=== PATIENT | female | born 1955 | race Caucasian/White ===

== ENCOUNTER → 2017-02-05 | Outpatient (CLI) | payer OTHER ==
[~2017-02-05] MED LIST: BISA-16 PO; CLON0.5T3 PO; HYDR-3126 PO; HYDR-3785 PO; IBUP-1428 PO; LOVA20TA4 PO; MECL1CHW4 PO; METHPOW7 PO; MIRA100T PO; OXYC1CAP5 PO; PANT40TA PO; POLY335019 PO; SOLI10TA2 PO; TOPI100T20 PO; TRAZ100T29 PO; WLLSR150 PO; ZOLP5TAB PO
[2017-02-05 14:07] VITALS: BP 113/78; PULSE 72; TEMP 36.6; O2SAT 98
--- NOTE | 2017-02-05 16:33 | Radiation Oncology Follow-Up ---
Radiation Oncology Follow-Up Date of Visit February 05, 2017. Reason For Visit One-month follow-up in cancer survivorship care plan Radiation Completion Date 12/30/16 Diagnosis (1) Breast CA Status: Resolved Onset Date: 02/28/2016 Permanent Comment: Abnormal right breast mammogram Status post biopsy of breast mass as well as axilla 02/28/2016 revealing invasive carcinoma Estrogen receptor negative, progesterone receptor indeterminate, HER-2/shauna negative Status post MRI guided biopsy of the left breast which was benign 04/03/2016 Status post neoadjuvant systemic chemotherapy Adriamycin and Cytoxan for 4 cycles then weekly Taxol 12 Status post lumpectomy and sentinel lymph node biopsy 10/09/2016 Stage ypT1c ypN2a M0 G3 Status post completion of radiation therapy 12/30/2016. She received 6240 cGy Last Edited By: Sania Wing on January 13, 2017 10:35 History of Present Illness Ms. Horner is a 61-year-old female without a family history of breast cancer. Patient underwent bilateral screening [facility]14[facility]. In the right axillary region and axillary lymphadenopathy was appreciated with a 2.9 x 2.8 cm lymph node. There was an equivocal asymmetry at the 12 o'clock position middle depth and equivocal mild right retroareolar asymmetry with nipple retraction. Right whole breast, synthesis CC and MLO oh injections with Spot views and targeted ultrasound were recommended for further clarification and evaluation. These procedures were performed on 02/22/2016. In the retroareolar region of the right breast there was suggestion of a 1.0 cm nodule which was not present on prior mammograms. The nipple did appear to be retracted. On sonography the right breast demonstrated a hypoechoic somewhat lobulated elongated structure measuring up to 0.3 cm in length. An ultrasound core biopsy and clip placement of the axillary and retroareolar region were performed on 03/05/2016. The preliminary ultrasound showed a 2.8 x 1.3 x 0.9 cm irregularly marginated vascularized hypoechoic mass. Targeted ultrasound of the right axilla also revealed a hypoechoic replaced enlarged lymph node corresponding to the lymphadenopathy is seen on the recent mammogram measuring 2.8 x 1.4 x 2.5 cm. The biopsy of the right breast retroareolar mass under ultrasound guidance confirmed an invasive carcinoma Toivola grade 2 of 3 measuring 1.1 cm in greatest dimension with focal necrosis. Angiolymphatic invasion was morphologically absent. Biopsy of the right axilla under ultrasound guidance also revealed an invasive carcinoma Poonam grade 2 of 3 adjacent lymphoid tissue measuring 0.8 cm in greatest dimension. Estrogen receptors were negative. Progesterone receptors were indeterminant. HER-2/shauna oncogene expression was equivocal. The tumor by FISH analysis was not amplified and therefore negative. Accession #: [id number]. The patient was seen by Dr. Khloe Mandujano for evaluation of neoadjuvant systemic chemotherapy. She ordered a staging PET/CT scan which was performed on 2015. This identified a right breast mass with an SUV max of 9.7. A large intensively avid right axillary node was also noted with an SUV max of 25.3. A mildly metabolically active subcarinal lymph node measuring 4.9 SUV max was appreciated. There was mild increased FDG activity projecting in the anterior upper mediastinum near the right sternoclavicular joint which could be slight this registration. The right axillary lymph node measured 2.3 x 3.0 cm. There was metabolic activity of the gastric cardia likely physiologic. No evidence of dissemination was appreciated. Her clinical staging was therefore T2 N1 ER negative, DC indeterminant and HER-2/shauna negative. Stage IIB. Dr. Brown ordered bilateral breast MRIs which were performed on 03/27/2016. In the right breast there was an irregular enhancing bilobed mass in the right sub-areolar breast measuring 1.4 x 3.0 x 1.6 cm area this involved the overlying areola with associated nipple retraction also noted. Susceptibility artifact from the biopsy marker clip was noted at the lateral aspect of this mass. These findings were consistent with the biopsy-proven malignancy. Remainder of the right breast demonstrated no suspicious enhancing masses or areas of abnormal non-mass enhancement. In the left breast a few foci measuring less than 0.5 cm are seen scattered throughout the left breast which appear similar to those changes in the right breast and felt to represent normal background. However there was a focal area of clumped non-mass enhancement measuring 0.6 cm in the left breast at the 9 o'clock position middle depth position. This was indeterminant and an MRI guided biopsy was recommended for further evaluation. An an abnormally enlarged right axillary lymph node was also noted measuring 2.9 x 1.7 cm with susceptibility artifact from biopsy marker seen within the lymph node. These are consistent with knowing ilda metastasis. No other abnormal right axillary lymph nodes are seen. There is no evidence of left axillary adenopathy. No other abnormalities noted on this MRI. On 04/03/2016 the patient underwent an MRI guided biopsy of the left breast abnormality. This revealed adenosis and intraductal papilloma with usual ductal hyperplasia. There was no evidence of DCIS or invasive carcinoma appreciated. Case: [id number]. The patient agreed to proceed with systemic chemotherapy. This consisted of Adriamycin and Cytoxan 4 followed by weekly Taxol. During the treatment the patient developed left breast pain and tenderness. She underwent a unilateral left digital diagnostic mammogram on 05/27/2016 with targeted ultrasound. The previous MRI guided left breast biopsy was noted with no other changes appreciated. Overall the patient did tolerate her systemic therapy fairly well. She does have some persistent numbness which is improving. Patient underwent repeat bilateral breast MRIs on 08/22/2016. This showed the irregular enhancing mass were previously 2 adjacent masses were identified in the right subareolar breast consistent with the biopsy-proven malignancy. This lesion had significantly decreased in size compared to the prior MRI in March 2016. This was consistent with a partial response to chemotherapy. There were 2 residual small areas of enhancement in the right subareolar breast. One measured 0.8 x 0.5 cm and the second measured 0.3 cm. The total extent of the area measured 2.3 x 0.8 cm compared to 3.0 x 1.4 cm on previous examination. The clip artifact was again noted. In addition the abnormal right axillary lymph node consistent with the biopsy-proven ilda metastasis had also decreased in size. Its current measurement was 1.8 x 1.1 cm compared to 2.9 x 1.7 cm. The remainder of the right breast was unremarkable. The left breast showed the clip artifact from prior biopsy but no other abnormalities. No left axillary adenopathy was appreciated. The extramammary tissues were unremarkable. Following the completion of the systemic chemotherapy the patient underwent a restaging PET/CT scan on 09/25/2016. This again showed a hypermetabolic right axillary lymph node measuring 1.8 x 0.9 cm markedly decreased in size from the previous measurement of 3.0 x 2.3 cm. The maximum SUV was 2.6 compared to a maximum SUV of 25.33 neoadjuvant chemotherapy. The previously hypermetabolic right breast mass was markedly decreased in FDG uptake consistent with residual tissue in this region. No areas of dissemination was appreciated. The patient returned to see Dr. Brown who proceeded to perform a right breast lumpectomy and sentinel node biopsy on 10/09/2016. The lumpectomy specimen identified residual invasive carcinoma Poonam grade 3 of 3 measuring 1.2 cm in greatest dimension. Invasive carcinoma directly invading into the dermis without skin ulceration. There was evidence of angiolymphatic invasion and perineural invasion. The margins of resection were negative for residual carcinoma. 9 sentinel nodes were initially identified and excised. 5 of them were positive for metastatic carcinoma with the largest measuring 0.5 cm without evidence of extracapsular extension. An additional 3 sentinel lymph nodes were excised and these were negative for metastatic disease. Therefore total of 5 out of 12 nodes were positive. The final pathologic stage was ypT1c ypN2a ER negative, DC indeterminant and HER-2/shauna negative by FISH. Accession # : [id number]. The patient is healing from her surgery and we were asked to see her to review with you the role of adjuvant radiation. She was treated with conventional radiation therapy. Her treatments were completed 12/30/2016. She received 6240 cGy. Treatment to the right breast, supraclavicular area, and axilla. Interim History She continues to have some mild soreness in the lateral aspect of the breast. She rated this at a level V. Occasional burning sensation. She said had no changes to the overlying skin. She has noted no redness and no masses. She takes Advil and this does help to relieve the discomfort she has seen Dr. Brown in follow-up and mammography is scheduled for April. Her energy levels are steadily improving. She did note increased difficulty with her depression and bipolar disease following treatment. She is following closely with her psychologist and psychiatrist. She was seen in medical oncology and there are plans for her to continue with physical therapy to help with improved mobility for the right shoulder. Allergies Coded Allergies: Morphine (Verified Allergy, Mild, "GO CRAZY", 07/10/16) Wasp (Unverified Allergy, Unknown, PASS OUT, THROAT SWELLING, 07/10/16) Home Medications Scheduled Bupropion HCl (Bupropion HCl Sr), 150 MG PO BID Clonazepam (Klonopin), 0.5 MG PO QPM Hydroxyzine Hcl (Atarax), 50 MG PO HS Lovastatin (Mevacor), 20 MG PO HS Pantoprazole (Protonix), 40 MG PO DAILY Solifenacin (Vesicare), 10 MG PO QAM Topiramate (Topamax), 100 MG PO BIDM Trazodone Hcl (Trazodone), 150 MG PO QPM Scheduled PRN Bisacodyl (Dulcolax), 1 TAB PO DAILY PRN for Constipation Meclizine Hcl (Meclizine Hcl), 25 MG PO DAILY PRN for Dizziness or Vertigo Zolpidem Tartrate (Ambien), 1 TAB PO HS PRN for Insomnia Review of Systems Gastrointestinal: Symptoms: Nausea, Constipation GI Comments: Waves of nausea;no emesis;Has antiemetics to use PRN; Oral: Other Oral Symptoms: Rectal spotting she relates to known hemorrhoids; Respiratory: Symptoms: Dry Cough Other Respiratory: That she's now been prescribed inhalers for w/relief; Urinary: Comments: Takes medication for urinary urgency; Skin: Symptoms: No Problems Breast: Right Upper Arm Measurement: 33.0 Right Mid Arm Measurement: 25.0 Right Wrist Measurement: 16.3 Left Upper Arm Measurement: 31.0 Left Mid Arm Measurement: 25.8 Left Wrist Measurement: 17.0 Arm Dominence: Left Additional Notes: She completed a distress management report and answered "no" to all questions other than she does have depression, nervousness and worry about her diagnosis. She does see a psychiatrist and psychologist on a regular basis. Physical Exam Vital Signs Date Time Temp Pulse Resp B/P Pulse Ox O2 Delivery O2 Flow Rate FiO2 02/05/17 14:07 36.6 72 16 113/78 98 Fatigue: None General Appearance: no apparent distress Eyes: normal inspection, EOMI ENT: normal ENT inspection, hearing grossly normal Neck: no adenopathy, thyroid normal Respiratory/Chest: lungs clear, no respiratory distress, no accessory muscle use Breast: Examination of the right breast shows the nipple to be absent. There is mild edema in the lower quadrants of the breast. There are no masses. Slight tenderness laterally. There is no axillary adenopathy. She has no skin retractions. There is resolving hyperpigmentation. Oozing the Medora score cosmesis she has a good outcome. The left breast showed no masses or tenderness and no axillary adenopathy. Cardiovascular: regular rate, rhythm, no gallop, no murmur Abdomen: non tender, soft, no organomegaly Extremities: no pedal edema Neurologic/Psychiatric: no motor/sensory deficits, alert, normal mood/affect Laboratory Studies Test 11/13/16 15:15 White Blood Count 5.62 K/uL (4.8-10.8) Red Blood Count 4.33 M/uL (4.2-5.4) Hemoglobin 12.8 g/dL (12.0-16.0) Hematocrit 37.1 % (37-47) Mean Corpuscular Volume 85.7 fL (80-100) Mean Corpuscular Hemoglobin 29.6 pg (25-34) Mean Corpuscular Hemoglobin Concent 34.5 g/dl (32-36) Platelet Count 234 K/uL (130-400) Mean Platelet Volume 8.9 fL (7.4-10.4) Neutrophils (%) (Auto) 60.9 % Lymphocytes (%) (Auto) 22.2 % Monocytes (%) (Auto) 14.2 % Eosinophils (%) (Auto) 2.0 % Basophils (%) (Auto) 0.5 % Neutrophils # (Auto) 3.42 K/uL (1.4-6.5) Lymphocytes # (Auto) 1.25 K/uL (1.2-3.4) Monocytes # (Auto) 0.80 K/uL (0.11-0.59) Eosinophils # (Auto) 0.11 K/uL (0-0.5) Basophils # (Auto) 0.03 K/uL (0-0.2) RDW Standard Deviation 41.2 fL (36.4-46.3) RDW Coefficient of Variation 13.0 % (11.5-14.5) Immature Granulocyte % (Auto) 0.2 % Immature Granulocyte # (Auto) 0.01 K/uL (0.00-0.02) Ovalocytes 1+ Thyroid Stimulating Hormone (TSH) 1.370 uIu/ml (0.300-4.500) Additional Studies She had a CT of the chest 01/06/2017 richard once. Showed a new fluid collection in the retroareolar right breast should represent a postoperative seroma area and abscess or tumor recurrence is not ruled out. Attention to this finding on follow-up studies is suggested. Interval decrease in size of hypermetabolic right axillary lymph node. Right major fissure nodule not seen previously. Anterior right upper lobe 5 mm nodule more conspicuous on the current study. Attention to these findings on the follow-up studies is recommended. New 3 mm low attention lesion in the dome of the liver may be conspicuous on the current study due to thinner 3 mm slices currently there was an addendum that the lesions are felt to be small cysts. Assessment & Plan Plan: Continue regular follow-up with medical oncology. Continue with scheduled mammography. She is scheduled for a mammogram in April. You follow- up with her breast surgeon. She continues follow-up with her psychiatrist and psychologist. She is going to physical therapy to help with her shoulder. Today we completed a cancer survivorship care plan. A copy of the document was given to patient. Recheck scanning per medical oncology. We asked her to return to our office in 6 months. Total Time In Follow-Up I spent 30 minutes speaking to the patient about performing examination. I spent 20 minutes reviewing information, preparing the survivorship document, and completing this note. Copy To Emmy Brown MD; Khloe Mandujano MD; Carrol Osorio M.D. Problem Qualifiers (1) Breast CA: Breast location: central portion of breast Estrogen receptor status: negative Patient sex: female Laterality: right Qualified Codes: C50.111 - Malignant neoplasm of central portion of right female breast; Z17.1 - Estrogen receptor negative status [ER-]
== END | disposition home or self-care (01) ==
LOC: C.ONC 14:01
PROVIDERS: ATTEND Physician Assistant Medical
DX: Z08 Encounter for follow-up examination after completed treatment for malignant neoplasm (principal); Z92.3 Personal history of irradiation; Z85.3 Personal history of malignant neoplasm of breast

== ENCOUNTER 2017-04-07 10:16 | Emergency (ER) | payer OTHER ==
[~2017-04-07] VITALS: Ht 167.6 cm; Wt 91.9 kg
[~2017-04-07 10:16] MED LIST changes: -HYDR-3126 PO; -IBUP-1428 PO; -METHPOW7 PO; -MIRA100T PO; -OXYC1CAP5 PO; -POLY335019 PO
[2017-04-07 10:22] VITALS: TEMP 36.5; Ht 167.6 cm; Wt 91.9 kg
[2017-04-07] MEDS ORDERED: HYDR-3126 PO (10:35)
[2017-04-07] MEDS ORDERED: ACETAMINOPHEN 500 MG TAB PO STA (11:04)
[2017-04-07] MEDS ORDERED: OXYCODONE HCL IR 5 MG TAB (IMMEDIATE RELEASE) PO STA (11:04)
[2017-04-07] MEDS ORDERED: SODIUM CHLORIDE 0.9% 1000ML 1,000 ML IV STA (11:14)
[2017-04-07] MEDS ORDERED: OPTIRAY 320 IV PRN (11:30)
[2017-04-07 12:10] LABS: BASO % 0.7 %; BASO ABS # 0.03 K/uL (0-0.2); COMPLETE YES; HEMATOCRIT 35.4 % (37-47); IG% 0.2 %; LYMPH % 21.9 %; LYMPH ABS # 0.99 K/uL (1.2-3.4); MEAN CELL VOLUME 89.2 fL (80-100); MEAN CORPUSCULAR HEMOGLOBIN 30.5 pg (25-34); MEAN CORPUSCULAR HGB CONC 34.2 g/dl (32-36); MONO % 14.6 %; NEUT % 60.6 %; PLATELET COUNT 181 K/uL (130-400); RED BLOOD COUNT 3.97 M/uL (4.2-5.4); WHITE BLOOD COUNT 4.52 K/uL (4.8-10.8)
[2017-04-07 12:28] LABS: BUN/CREATININE RATIO 10.1 (10-20); CALCIUM 8.5 mg/dl (8.5-10.1); CREATININE 0.92 mg/dl (0.60-1.20); POTASSIUM 3.6 mmol/L (3.5-5.1)
--- NOTE | 2017-04-07 13:11 | DIAGNOSTIC IMAGING REPORT ---
ADDENDUM Addendum: Comparison is made to an outside CT dated 01/06/2017. The postoperative seroma of the right breast has resolved. No significant adenopathy on the current study. Micronodularity previously described is nonprogressive IMPRESSION: Study is stable to slightly improved compared to the prior exam. Stable micronodularity. Improved postoperative changes right breast. Electronically signed by: Pranav Mayer M.D. 04/15/2017 12:41 PM Dictated Date/Time: 04/15/2017 12:40 PM ORIGINAL REPORT (CHEST) THORAX WITH CT DOSE: 532.53 mGy.cm HISTORY: Trauma. Pain. fall, left cwt pain, r/o rib fx/pulm contusion TECHNIQUE: Multiaxial CT images of the chest were performed following the intravenous administration of contrast. A dose lowering technique was utilized adhering to the principles of ALARA. COMPARISON: None. FINDINGS: Minimal dependent basilar atelectasis. Lungs otherwise are clear. No evidence pneumothorax. Pulmonary vasculature appears unremarkable with no major filling defect within limitations of this exam. Thoracic aorta is unremarkable. No significant mediastinal or hilar adenopathy. Moderate degenerative change of the osseous structures. No evidence for compression deformity. 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 No evidence for acute bony pathology. Slight nonspecific bone density in homogeneity which potentially represents osteoporotic change. IMPRESSION: No acute process. Lungs are clear. No acute bony pathology. The above report was generated using voice recognition software. It may contain grammatical, syntax or spelling errors. Electronically signed by: Pranav Mayer M.D. 04/07/2017 1:09 PM Dictated Date/Time: 04/07/2017 1:05 PM
--- NOTE | 2017-04-07 13:35 | EMERGENCY ROOM VISIT NOTE ---
History Report prepared by Lacie: Etelvina Dumont Under the Supervision of: Dr. Raz Ladd M.D. First contact with patient: 10:56 Chief Complaint: RIB PAIN Stated Complaint: SHARP PAIN-LEFT SIDE UNDER LEFT BREAST Nursing Triage Summary: pt states friday carrying stff up steps went to step up fell onto edge of step rolled back and hit head on rock scraped up right side. pt reports now when breathing heavy gets pain under left breast History of Present Illness The patient is a 62 year old female who presents to the Emergency Room with complaints of persistent left rib pain starting 2 days ago. She called her doctor this morning who told her to present to the ED. The patient was going up cement stairs up to her home. She was carrying too many items and lost her balance. She fell into the step, rolled over and hit her head on a rock. Her had to help her up. She was able to walk afterwards without limping. Her pain worsens with breathing and movement. She took 2 Advil this morning to no significant relief. She has an abrasion on her right leg. She denies any LOC , head pain, abdominal pain, or neck pain. She is not on any blood thinners. She is currently in remission from stage 3 breast cancer in her right breast. She is scheduled for a mammogram tomorrow. Source of History: patient, spouse/significant other Onset: 2 days ago Position: other (left rib) Quality: other (injury, pain) Timing: other (persistent) Modifying Factors (Worsening): breathing, movement Associated Symptoms: No LOC, No headache, No neck pain, No abdominal pain Note: Pt reports right leg abrasion. Review of Systems See HPI for pertinent positives and negatives. A total of ten systems were reviewed and were otherwise negative. Past Medical & Surgical Medical Problems: (1) Breast CA Family History Diabetes mellitus FHx: cancer FHx: heart disease Hypertension Social History Smoking Status: Never Smoker Alcohol Use: occasionally Drug Use: none Marital Status: Occupation Status: employed Current/Historical Medications Scheduled Bupropion HCl (Bupropion HCl Sr), 150 MG PO BID Clonazepam (Klonopin), 0.5 MG PO QPM Hydroxyzine Hcl (Atarax), 50 MG PO HS Ibuprofen (Motrin), 800 MG PO Q8H Lovastatin (Mevacor), 20 MG PO HS Pantoprazole (Protonix), 40 MG PO DAILY Solifenacin (Vesicare), 10 MG PO QAM Topiramate (Topamax), 100 MG PO BIDM Trazodone Hcl (Trazodone), 150 MG PO QPM Scheduled PRN Bisacodyl (Dulcolax), 5 MG PO DAILY PRN for Constipation Meclizine Hcl (Meclizine Hcl), 25 MG PO DAILY PRN for Dizziness or Vertigo Oxycodone Hcl (Oxycodone Hcl), 1 CAP PO TID PRN for Pain Zolpidem Tartrate (Ambien), 5 MG PO HS PRN for Insomnia Allergies Coded Allergies: Morphine (Verified Allergy, Mild, "GO CRAZY", 04/07/17) Wasp (Unverified Allergy, Unknown, PASS OUT, THROAT SWELLING, 04/07/17) Physical Exam Vital Signs Date Time Temp Pulse Resp B/P (MAP) Pulse Ox O2 Delivery O2 Flow Rate FiO2 04/07/17 14:40 83 18 107/69 98 Room Air 04/07/17 13:46 64 16 107/69 94 Room Air 04/07/17 13:26 62 04/07/17 12:51 65 18 122/60 94 Room Air 04/07/17 11:52 64 18 110/69 100 Room Air 04/07/17 10:57 69 04/07/17 10:22 36.5 75 18 107/72 100 Room Air Physical Exam GENERAL: Awake, alert, well-appearing, in no distress HENT: Normocephalic, atraumatic. Oropharynx unremarkable. EYES: Normal conjunctiva. Sclera non-icteric. NECK: Supple. No nuchal rigidity. FROM. No JVD. RESPIRATORY: Clear to auscultation. CARDIAC: Regular rate, normal rhythm. Extremities warm and well perfused. Pulses equal. ABDOMEN: Soft, non-distended. No tenderness to palpation. No rebound or guarding. No masses. RECTAL: Deferred. MUSCULOSKELETAL: Mild to moderate tenderness to the left posterior lateral chest wall ribs 4, 5, 6, 7. The back is symmetrical on inspection without obvious abnormality. There is no CVA tenderness to palpation. No joint edema. LOWER EXTREMITIES: Calves are equal size bilaterally and non-tender. No edema. No discoloration. NEURO: Normal sensorium. No sensory or motor deficits noted. SKIN: No rash or jaundice noted. Medical Decision & Procedures ER Provider Diagnostic Interpretation: Radiology results as stated below per my review and radiologist interpretation: (CHEST) THORAX WITH CT DOSE: 532.53 mGy.cm HISTORY: Trauma. Pain. fall, left cwt pain, r/o rib fx/pulm contusion TECHNIQUE: Multiaxial CT images of the chest were performed following the intravenous administration of contrast. A dose lowering technique was utilized adhering to the principles of ALARA. COMPARISON: None. FINDINGS: Minimal dependent basilar atelectasis. Lungs otherwise are clear. No evidence pneumothorax. Pulmonary vasculature appears unremarkable with no major filling defect within limitations of this exam. Thoracic aorta is unremarkable. No significant mediastinal or hilar adenopathy. Moderate degenerative change of the osseous structures. No evidence for compression deformity. 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 No evidence for acute bony pathology. Slight nonspecific bone density in homogeneity which potentially represents osteoporotic change. IMPRESSION: No acute process. Lungs are clear. No acute bony pathology. The above report was generated using voice recognition software. It may contain grammatical, syntax or spelling errors. Electronically signed by: Pranav Mayer M.D. 04/07/2017 1:09 PM Dictated Date/Time: 04/07/2017 1:05 PM Laboratory Results 04/07/17 11:40 Red Blood Count 3.97, Mean Corpuscular Volume 89.2, Mean Corpuscular Hemoglobin 30.5, Mean Corpuscular Hemoglobin Concent 34.2, Mean Platelet Volume 9.0, Neutrophils (%) (Auto) 60.6, Lymphocytes (%) (Auto) 21.9, Monocytes (%) (Auto) 14.6, Eosinophils (%) (Auto) 2.0, Basophils (%) (Auto) 0.7, Neutrophils # (Auto ) 2.74, Lymphocytes # (Auto) 0.99, Monocytes # (Auto) 0.66, Eosinophils # (Auto ) 0.09, Basophils # (Auto) 0.03 04/07/17 11:40 Test 04/07/17 11:40 White Blood Count 4.52 K/uL (4.8-10.8) Red Blood Count 3.97 M/uL (4.2-5.4) Hemoglobin 12.1 g/dL (12.0-16.0) Hematocrit 35.4 % (37-47) Mean Corpuscular Volume 89.2 fL (80-100) Mean Corpuscular Hemoglobin 30.5 pg (25-34) Mean Corpuscular Hemoglobin Concent 34.2 g/dl (32-36) Platelet Count 181 K/uL (130-400) Mean Platelet Volume 9.0 fL (7.4-10.4) Neutrophils (%) (Auto) 60.6 % Lymphocytes (%) (Auto) 21.9 % Monocytes (%) (Auto) 14.6 % Eosinophils (%) (Auto) 2.0 % Basophils (%) (Auto) 0.7 % Neutrophils # (Auto) 2.74 K/uL (1.4-6.5) Lymphocytes # (Auto) 0.99 K/uL (1.2-3.4) Monocytes # (Auto) 0.66 K/uL (0.11-0.59) Eosinophils # (Auto) 0.09 K/uL (0-0.5) Basophils # (Auto) 0.03 K/uL (0-0.2) RDW Standard Deviation 42.0 fL (36.4-46.3) RDW Coefficient of Variation 12.9 % (11.5-14.5) Immature Granulocyte % (Auto) 0.2 % Immature Granulocyte # (Auto) 0.01 K/uL (0.00-0.02) Anion Gap 8.0 mmol/L (3-11) Est Creatinine Clear Calc Drug Dose 72.4 ml/min Estimated GFR () 77.3 Estimated GFR (Non- 66.7 BUN/Creatinine Ratio 10.1 (10-20) Calcium Level 8.5 mg/dl (8.5-10.1) Laboratory results reviewed by me Medications Administered Medications (Trade) Dose Ordered Sig/Julio Route Start Time Stop Time Status Last Admin Dose Admin Oxycodone HCl (Roxicodone Immediate Rel Tab) 5 mg NOW STAT PO 04/07/17 11:04 04/07/17 11:14 DC 04/07/17 11:52 5 MG Acetaminophen (Tylenol Tab) 1,000 mg NOW STAT PO 04/07/17 11:04 04/07/17 11:14 DC 04/07/17 11:51 1,000 MG Sodium Chloride 1,000 ml @ 999 mls/hr Q1H1M STAT IV 04/07/17 11:14 04/07/17 12:14 DC 04/07/17 11:26 999 MLS/HR Heparin Sodium (Porcine) (Heparin 10 Unit/ ml 5 ml Flush) 5 ml STK-MED ONCE .ROUTE 04/07/17 13:48 04/07/17 13:49 DC 04/07/17 13:48 5 ML ECG Indication: chest pain Rate (beats per minute): 66 Rhythm: normal sinus Findings: no acute ischemic change, other (normal axis) Comparison ECG Date: no prior available ED Course 1102: The patient was evaluated in room B5. A complete history and physical exam was performed. 1104: Acetaminophen 1000 mg PO, Oxycodone HCl 5 mg PO. 1114: NSS 1000 ml @ 999 mls/hr IV. 1340: I reevaluated the patient. I discussed results and discharge instructions : she verbalized understanding and agreement. The patient is ready for discharge. 1348: Heparin Sodium (Porcine) 5 ml IV. Medical Decision I reviewed the patient's past medical history, medications, and the nursing notes as described above. Differential diagnosis: rib fractures, pulmonary contusion, soft tissues injury , contusion, musculoskeletal strain. Patient is a 62 y/o woman who presents to the ED with persisted left cw pain and sob after having mechanical fall 2 days CAN CRIMPER per HPI. On arrival the patient is in NAD, AFVSS. >95% on RA. Reports SOB and difficulty with deep breaths. On exam has ttp left lateral CW concerning for possible rib fx. Considering the patient's age and morbidity associated with multiple rib fx, CT scan ordered. CT negative for fx or PTX. Sx most likley msk strain, soft tissue contusion. Patient also reported HS with fall as well but denies LOC, CHEEK, n/v, changes in vision. Head is NC/AT. Considering 2 days from fall and neuro intact, no imaging indicated at this time. Findings and plan for IS, pain control, and pcp f/u d/w patient. Patient agreeable and d/c'd per dci. Head Trauma GCS Score: 15 Medication Reconcilliation Current Medication List: was personally reviewed by me Blood Pressure Screening Patient's blood pressure: Normal blood pressure Blood pressure disposition: Did not require urgent referral Impression Primary Impression: Chest wall muscle strain Scribe Attestation The scribe's documentation has been prepared under my direction and personally reviewed by me in its entirety. I confirm that the note above accurately reflects all work, treatment, procedures, and medical decision making performed by me. Departure Information Dispostion Home / Self-Care Prescriptions Oxycodone Hcl (OXYCODONE HCL) 5 Mg Cap 1 CAP PO TID Y for Pain for 5 Days, #5 CAP Prov: Raz Ladd M.D. 04/07/17 Ibuprofen (Motrin) 800 Mg Tab 800 MG PO Q8H for 7 Days, #21 TAB Prov: Raz Ladd M.D. 04/07/17 Referrals Carrol Osorio M.D. (PCP) Patient Instructions ED Contusion Chest Wall, My [facility] Additional Instructions Please follow up with your primary care physician in the next 1-3 days. Your exam, lab results, and CT scan of your chest did not show signs of an emergent condition at this time. Take ibuprofen up to 800 mg every 8 hours as needed for pain for the next 7 days. Oxycodone for breakthrough pain as needed. Apply ice and heat at 20 minute intervals throughout the day as needed for additional pain relief. Incentive spirometer 10 times per hour every hour for the next week. Return to the emergency department for worsening symptoms as described in the accompanying instructions.
[2017-04-07] MEDS ORDERED: IBUP-1428 PO (13:53)
[2017-04-07] MEDS ORDERED: OXYC1CAP5 PO (13:53)
[2017-04-07 14:40] VITALS: BP 107/69; PULSE 83; O2SAT 98
== END 2017-04-07 14:42 | disposition home or self-care (01) ==
LOC: C.EDB 10:17
DX: S29.012A Strain of muscle and tendon of back wall of thorax, initial encounter (principal); W10.9XXA Fall (on) (from) unspecified stairs and steps, initial encounter; Z85.3 Personal history of malignant neoplasm of breast; Z83.3 Family history of diabetes mellitus; Z82.49 Family history of ischemic heart disease and other diseases of the circulatory system

== ENCOUNTER → 2017-04-10 | Outpatient (CLI) | payer OTHER ==
[~2017-04-10] MED LIST changes: +GADAVIST IV PRN; +GADOXETATE DISODIUM (NON-WT BASED PROCEDURE) IV PRN; +HYDR-3126 PO; -HYDR-3785 PO; +IBUP-1428 PO; +OXYC1CAP5 PO
--- NOTE | 2017-04-10 13:49 | DIAGNOSTIC IMAGING REPORT ---
LIVER COMBO CLINICAL HISTORY: 62 years-old Female presenting with BREAST CA,LIVER LESION. TECHNIQUE: Multisequence, multiplanar MR imaging of the abdomen was performed before and after the administration of intravenous contrast. IV contrast: 10 mL of Eovist. COMPARISON: Correlation made to CT from 05/30/2016. FINDINGS: Localizer images: Unremarkable. Lung bases: Lung bases clear. No pericardial or pleural effusion. Liver: Carissa lobe configuration. No evidence of hepatic steatosis. No suspicious liver lesion. Tiny hepatic cyst or hamartoma noted at the right dome. Conventional hepatic arterial anatomy. Superior mesenteric, portal, and hepatic veins patent. Biliary: Conventional intrahepatic biliary bifurcation. No intrahepatic or extrahepatic biliary ductal dilatation. Normal excretion of contrast on the hepatobiliary phase into the duodenum. Normal gallbladder. Pancreas: Moderate parenchymal atrophy. No pancreatic ductal dilatation. Spleen: Normal. Adrenal glands: Normal. Kidneys and ureters: Normal. No hydronephrosis. Gastrointestinal tract: Normal. No bowel obstruction. Peritoneal cavity: No free fluid or intraperitoneal gas. Vasculature: Aorta and IVC patent and normal in caliber. Lymph nodes: No enlarged lymph nodes in the abdomen or pelvis. Abdominal wall: Normal. Musculoskeletal: T2 hyperintense, nonfat-containing enhancing mass in one of the lower thoracic vertebral bodies, indeterminate. However, the appearance on CT from May 2016 was indicative of a benign hemangioma. IMPRESSION: 1. No evidence of metastatic disease in the abdomen. No suspicious liver lesion. Electronically signed by: Mckay Samaniego M.D. 04/10/2017 1:48 PM Dictated Date/Time: 04/10/2017 1:37 PM
== END | disposition home or self-care (01) ==
LOC: C.MRI 11:34
PROVIDERS: ATTEND Internal Medicine Hematology & Oncology
DX: C50.911 Malignant neoplasm of unspecified site of right female breast (principal); K76.9 Liver disease, unspecified; R91.8 Other nonspecific abnormal finding of lung field

== ENCOUNTER → 2017-07-10 | Outpatient (CLI) | payer OTHER ==
[~2017-07-10] MED LIST changes: -GADAVIST IV PRN; -GADOXETATE DISODIUM (NON-WT BASED PROCEDURE) IV PRN; -IBUP-1428 PO; +MIRA100T PO; -OXYC1CAP5 PO
[2017-07-10 13:58] VITALS: BP 110/78; PULSE 69; TEMP 36.5; O2SAT 97
--- NOTE | 2017-07-10 14:57 | Radiation Oncology Follow-Up ---
Radiation Oncology Follow-Up Date of Visit Jul 10, 2017. Reason For Visit 6 month follow-up Radiation Completion Date 12/30/16 Diagnosis (1) Breast CA Status: Resolved Onset Date: 02/28/2016 Stage: lll (A) Permanent Comment: Abnormal right breast mammogram Status post biopsy of breast mass as well as axilla 02/28/2016 revealing invasive carcinoma Estrogen receptor negative, progesterone receptor indeterminate, HER-2/shauna negative Status post MRI guided biopsy of the left breast which was benign 04/03/2016 Status post neoadjuvant systemic chemotherapy Adriamycin and Cytoxan for 4 cycles then weekly Taxol 12 Status post lumpectomy and sentinel lymph node biopsy 10/09/2016 Stage ypT1c ypN2a M0 G3 Status post completion of radiation therapy 12/30/2016. She received 6240 cGy Last Edited By: Sania Wing on January 13, 2017 10:35 History of Present Illness Ms. Horner is a 61-year-old female without a family history of breast cancer. Patient underwent bilateral screening mammogram on 02/14/2016 [facility]. In the right axillary region and axillary lymphadenopathy was appreciated with a 2.9 x 2.8 cm lymph node. There was an equivocal asymmetry at the 12 o'clock position middle depth and equivocal mild right retroareolar asymmetry with nipple retraction. Right whole breast, synthesis CC and MLO oh injections with Spot views and targeted ultrasound were recommended for further clarification and evaluation. These procedures were performed on 02/22/2016. In the retroareolar region of the right breast there was suggestion of a 1.0 cm nodule which was not present on prior mammograms. The nipple did appear to be retracted. On sonography the right breast demonstrated a hypoechoic somewhat lobulated elongated structure measuring up to 0.3 cm in length. An ultrasound core biopsy and clip placement of the axillary and retroareolar region were performed on 03/05/2016. The preliminary ultrasound showed a 2.8 x 1.3 x 0.9 cm irregularly marginated vascularized hypoechoic mass. Targeted ultrasound of the right axilla also revealed a hypoechoic replaced enlarged lymph node corresponding to the lymphadenopathy is seen on the recent mammogram measuring 2.8 x 1.4 x 2.5 cm. The biopsy of the right breast retroareolar mass under ultrasound guidance confirmed an invasive carcinoma [place] grade 2 of 3 measuring 1.1 cm in greatest dimension with focal necrosis. Angiolymphatic invasion was morphologically absent. Biopsy of the right axilla under ultrasound guidance also revealed an invasive carcinoma [place] grade 2 of 3 adjacent lymphoid tissue measuring 0.8 cm in greatest dimension. Estrogen receptors were negative. Progesterone receptors were indeterminant. HER-2/shauna oncogene expression was equivocal. The tumor by FISH analysis was not amplified and therefore negative. Accession #: [id number]. The patient was seen by Dr. Khloe Mandujano for evaluation of neoadjuvant systemic chemotherapy. She ordered a staging PET/CT scan which was performed on 2015. This identified a right breast mass with an SUV max of 9.7. A large intensively avid right axillary node was also noted with an SUV max of 25.3. A mildly metabolically active subcarinal lymph node measuring 4.9 SUV max was appreciated. There was mild increased FDG activity projecting in the anterior upper mediastinum near the right sternoclavicular joint which could be slight this registration. The right axillary lymph node measured 2.3 x 3.0 cm. There was metabolic activity of the gastric cardia likely physiologic. No evidence of dissemination was appreciated. Her clinical staging was therefore T2 N1 ER negative, MT indeterminant and HER-2/shauna negative. Stage IIB. Dr. Brown ordered bilateral breast MRIs which were performed on 03/27/2016. In the right breast there was an irregular enhancing bilobed mass in the right sub-areolar breast measuring 1.4 x 3.0 x 1.6 cm area this involved the overlying areola with associated nipple retraction also noted. Susceptibility artifact from the biopsy marker clip was noted at the lateral aspect of this mass. These findings were consistent with the biopsy-proven malignancy. Remainder of the right breast demonstrated no suspicious enhancing masses or areas of abnormal non-mass enhancement. In the left breast a few foci measuring less than 0.5 cm are seen scattered throughout the left breast which appear similar to those changes in the right breast and felt to represent normal background. However there was a focal area of clumped non-mass enhancement measuring 0.6 cm in the left breast at the 9 o'clock position middle depth position. This was indeterminant and an MRI guided biopsy was recommended for further evaluation. An an abnormally enlarged right axillary lymph node was also noted measuring 2.9 x 1.7 cm with susceptibility artifact from biopsy marker seen within the lymph node. These are consistent with knowing ilda metastasis. No other abnormal right axillary lymph nodes are seen. There is no evidence of left axillary adenopathy. No other abnormalities noted on this MRI. On 04/03/2016 the patient underwent an MRI guided biopsy of the left breast abnormality. This revealed adenosis and intraductal papilloma with usual ductal hyperplasia. There was no evidence of DCIS or invasive carcinoma appreciated. Case: [id number]. The patient agreed to proceed with systemic chemotherapy. This consisted of Adriamycin and Cytoxan 4 followed by weekly Taxol. During the treatment the patient developed left breast pain and tenderness. She underwent a unilateral left digital diagnostic mammogram on 05/27/2016 with targeted ultrasound. The previous MRI guided left breast biopsy was noted with no other changes appreciated. Overall the patient did tolerate her systemic therapy fairly well. She does have some persistent numbness which is improving. Patient underwent repeat bilateral breast MRIs on 08/22/2016. This showed the irregular enhancing mass were previously 2 adjacent masses were identified in the right subareolar breast consistent with the biopsy-proven malignancy. This lesion had significantly decreased in size compared to the prior MRI in March 2016. This was consistent with a partial response to chemotherapy. There were 2 residual small areas of enhancement in the right subareolar breast. One measured 0.8 x 0.5 cm and the second measured 0.3 cm. The total extent of the area measured 2.3 x 0.8 cm compared to 3.0 x 1.4 cm on previous examination. The clip artifact was again noted. In addition the abnormal right axillary lymph node consistent with the biopsy-proven ilda metastasis had also decreased in size. Its current measurement was 1.8 x 1.1 cm compared to 2.9 x 1.7 cm. The remainder of the right breast was unremarkable. The left breast showed the clip artifact from prior biopsy but no other abnormalities. No left axillary adenopathy was appreciated. The extramammary tissues were unremarkable. Following the completion of the systemic chemotherapy the patient underwent a restaging PET/CT scan on 09/25/2016. This again showed a hypermetabolic right axillary lymph node measuring 1.8 x 0.9 cm markedly decreased in size from the previous measurement of 3.0 x 2.3 cm. The maximum SUV was 2.6 compared to a maximum SUV of 25.33 neoadjuvant chemotherapy. The previously hypermetabolic right breast mass was markedly decreased in FDG uptake consistent with residual tissue in this region. No areas of dissemination was appreciated. The patient returned to see Dr. Brown who proceeded to perform a right breast lumpectomy and sentinel node biopsy on 10/09/2016. The lumpectomy specimen identified residual invasive carcinoma [place] grade 3 of 3 measuring 1.2 cm in greatest dimension. Invasive carcinoma directly invading into the dermis without skin ulceration. There was evidence of angiolymphatic invasion and perineural invasion. The margins of resection were negative for residual carcinoma. 9 sentinel nodes were initially identified and excised. 5 of them were positive for metastatic carcinoma with the largest measuring 0.5 cm without evidence of extracapsular extension. An additional 3 sentinel lymph nodes were excised and these were negative for metastatic disease. Therefore total of 5 out of 12 nodes were positive. The final pathologic stage was ypT1c ypN2a ER negative, MT indeterminant and HER-2/shauna negative by FISH. Accession # : [id number]. The patient is healing from her surgery and we were asked to see her to review with you the role of adjuvant radiation. She was treated with conventional radiation therapy. Her treatments were completed 12/30/2016. She received 6240 cGy. Treatment to the right breast, supraclavicular area, and axilla. Interim History She's been doing well over this past year. She has noted no changes to her breast. She noted no masses or tenderness and no change in the axilla. She does have history of lymphedema. She underwent lymphedema treatments. She has now completed these treatments. She is doing exercises at home. She is also joined a gym and started some exercises there also. She is up-to-date on mammography. Allergies Coded Allergies: Morphine (Verified Allergy, Mild, "GO CRAZY", 04/07/17) Wasp (Unverified Allergy, Unknown, PASS OUT, THROAT SWELLING, 04/07/17) Home Medications Scheduled Bupropion HCl (Bupropion HCl Sr), 150 MG PO BID Clonazepam (Klonopin), 0.5 MG PO QPM Hydroxyzine Hcl (Atarax), 50 MG PO HS Lovastatin (Mevacor), 20 MG PO HS Meclizine Hcl (Meclizine Hcl), 25 MG PO DAILY Mirabegron (Myrbetriq Er), 25 MG PO DAILY Pantoprazole (Protonix), 40 MG PO DAILY Solifenacin (Vesicare), 10 MG PO QAM Topiramate (Topamax), 100 MG PO BIDM Trazodone Hcl (Trazodone), 150 MG PO QPM Scheduled PRN Bisacodyl (Dulcolax), 5 MG PO DAILY PRN for Constipation Zolpidem Tartrate (Ambien), 5 MG PO HS PRN for Insomnia Review of Systems Gastrointestinal: Symptoms: WNL, Nausea GI Comments: Continued nausea every day - tums with slight relief Oral: Symptoms: No Problems Other Oral Symptoms: Chronic trouble swallowing since first chemo Respiratory: Symptoms: WNL, Dry Cough Other Respiratory: That she's now been prescribed inhalers for w/relief; Urinary: Symptoms: WNL Comments: Takes medication for urinary urgency; Skin: Symptoms: No Problems Breast: Right Upper Arm Measurement: 31.0 Right Mid Arm Measurement: 24.9 Right Wrist Measurement: 16.5 Left Upper Arm Measurement: 30.1 Left Mid Arm Measurement: 25.5 Left Wrist Measurement: 16.6 Arm Dominence: Left Physical Exam Vital Signs Date Time Temp Pulse Resp B/P (MAP) Pulse Ox O2 Delivery O2 Flow Rate FiO2 07/10/17 13:58 36.5 69 16 110/78 97 Fatigue: None General Appearance: no apparent distress Eyes: normal inspection, EOMI ENT: normal ENT inspection, hearing grossly normal Neck: no adenopathy, thyroid normal Respiratory/Chest: lungs clear, no respiratory distress, no accessory muscle use Breast: Breast examination reveals the nipple to be absent on the right. There is mild edema of the lower portion of the breast. There are no masses there is slight tenderness. There is no axillary adenopathy. She has no skin retractions. Using the [place] score cosmesis she has a good outcome. The left breast showed no masses or tenderness and no axillary adenopathy. Cardiovascular: regular rate, rhythm, no gallop, no murmur Abdomen: non tender, soft Extremities: no pedal edema Neurologic/Psychiatric: no motor/sensory deficits, alert, normal mood/affect Skin: warm/dry Additional Studies She had a mammogram 04/08/2017. Right breast findings are probably benign a short interval follow-up was recommended in 6 months. Left breast no evidence of malignancy follow-up in 12 months recommended. Assessment & Plan Plan: She has mammography scheduled for 10/13/2017. There is also ultrasound scheduled. She'll continue her lymphedema treatments for her arm. She will need to work on stretching exercises for of the shoulder. Continue follow-up with Dr. Mandujano, Dr. Brown, and her primary care physician. We asked her to return to our office in 1 year. She may call if she has any questions or concerns in the interim. Total Time In Follow-Up I spent 20 minutes speaking to the patient and performing examination. I spent 15 minutes reviewing information and completing this note. Copy To Emmy Brown MD; Khloe Mandujano MD; Carrol Osorio M.D. Problem Qualifiers (1) Breast CA: Breast location: central portion of breast Estrogen receptor status: negative Patient sex: female Laterality: right Qualified Codes: C50.111 - Malignant neoplasm of central portion of right female breast; Z17.1 - Estrogen receptor negative status [ER-]
== END | disposition home or self-care (01) ==
LOC: C.ONC 13:53
PROVIDERS: ATTEND Physician Assistant Medical
DX: Z08 Encounter for follow-up examination after completed treatment for malignant neoplasm (principal); Z92.3 Personal history of irradiation; Z85.3 Personal history of malignant neoplasm of breast

== ENCOUNTER → 2017-08-11 | Outpatient (CLI) | payer OTHER ==
--- NOTE | 2017-08-12 14:26 | MAMMOGRAPHY REPORT ---
BREAST MRI OF BOTH BREASTS : 08/11/2017 CLINICAL HISTORY: 62-year-old woman with a personal history of right breast cancer and metastatic axi llary lymph node status post neoadjuvant chemotherapy with subsequent lumpectomy and radiation therap y since the prior breast MRI. COMPARISON: Comparison is made to exams dated: 03/27/2016 breast MRI, 04/03/2016 MRI biopsy, 04/03/2016 mammogram, 05/27/2016 mammogram, 05/27/2016 ultrasound, and 03/27/2016, 08/22/2016 breast MRI - [facility]. TECHNIQUE: Using a 1.5 Dina magnet and dedicated breast coil, multisequence axial images were obtain ed through the breasts. After uneventful IV administration of 9 mL of Gadavist, dynamic multiphase c ontrast-enhanced axial images, and sagittal postcontrast were obtained. Temporal subtraction axial i mages and 3-D MIP images are provided. Everything was then reviewed on a 3-D workstation, [employer]. FINDINGS: Right breast: There is mild confluent background parenchymal enhancement. There is expected architec tural distortion in the anterior subareolar right breast including excision of the nipple areolar com plex, denoting the site of lumpectomy. There is diffuse edema and skin thickening of the right breas t likely related to recent treatment. A previously observed enlarged enhancing lymph node in the rig ht axilla is no longer seen, consistent with lymph node sampling. There is a thin appreciable rim of enhancement surrounding a small 11 mm surgical cavity in the anterior right breast, extending to the skin surface along the surgical incision, likely representing postsurgical change, although correlat ion with margin status is recommended as the final surgical pathology report is not currently availab le. No suspicious enhancing masses, definite non-mass enhancement or suspicious kinetics are seen in the right breast. No suspicious right axillary lymphadenopathy. Left breast: There is mild background parenchymal enhancement, including multiple scattered enhancing foci of the left breast. There are 3 areas of susceptibility artifact in the left breast, from prev ious benign biopsies. A biopsied area of non-mass enhancement in the 9:00 left breast using MRI guid ance is no longer identified, confirming benignity. There is a 4 mm focus of enhancement just inferi or to the area of susceptibility artifact in the central left breast approximately 8 cm distal to the nipple, with associated plateau and minimal washout kinetics (axial page 68/130, sagittal page 29/13 2), that is minimally more prominent comparing to the March 2016 MRI, at which time it measured 3.6 mm , and could be within the range of technical measuring air or background enhancement. Nevertheless, given the slight increased prominence a short interval follow-up breast MRI is recommended to ensure stability in 6 months. No other new suspicious enhancing masses, non-mass enhancement or suspicious kinetics are seen in the left breast. No skin thickening or nipple retraction. No suspicious left a xillary lymphadenopathy. There is susceptibility artifact from a Mediport catheter in the upper inner far superior left breast . Trace dependent fluid in the visualized right lung. IMPRESSION: ACR-BI-RADS CATEGORY 3: PROBABLY BENIGN 1. Interval postsurgical/post treatment changes in the right breast from lumpectomy, axillary lymph node sampling and radiation therapy. No definite MRI evidence of malignancy in the right breast. 2. Evidence of prior biopsies in the left breast, with mild scattered background enhancement. One o f the foci of enhancement inferior to the biopsy marker clip in the central left breast is minimally increased in prominence compared to the March 2016 breast MRI. Although this could be within the rang e of normal background enhancement, a short interval follow-up 6 month breast MRI is recommended to e nsure stability. 3. Also recommend bilateral mammography now, if this has not already been performed, to establish ne w mammographic baseline after treatment. The patient will receive written notification of the results. Yaneli Fan M.D. ay/:08/11/2017 22:11:27 Manufacturer'S Service Representative: space and storage clerk, [facility] letter sent: Follow Up Recommended 3 BI-RADS Code: ACR-BI-RADS Category 3: Probably Benign
== END | disposition home or self-care (01) ==
LOC: C.MRI 09:35
PROVIDERS: ATTEND Surgery
DX: Z17.1 Estrogen receptor negative status [ER-] (principal); C50.911 Malignant neoplasm of unspecified site of right female breast